=== PATIENT | female | born 1945 | race Caucasian/White ===

== ENCOUNTER 2016-08-27 09:23 | Emergency (ER) | payer OTHER ==
[~2016-08-27] VITALS: Ht 154.9 cm; Wt 64.0 kg
[~2016-08-27 09:23] MED LIST: ALPR-138 PO; CARV3.125 PO; FLON0.053; FLUOCINOLONE RIGHT EAR; PRAV40TA PO; RANI150T PO
[2016-08-27 09:26] VITALS: BP 155/92; PULSE 100; RESP 16; TEMP 98.7; O2SAT 97
--- NOTE | 2016-08-27 09:43 | PD ---
HPI . Urinary symptoms Chief Complaint: Complaint Time Seen by Provider: 09:39 Travel History International Travel<30 days: No Contact w/Intl Traveler<30days: No Traveled to known affect area: No History of Present Illness HPI The patient presents for the evaluation of acute urinary symptoms. Onset was last night. She reports was given urination, dysuria and hematuria. She states that she has had a lot of water to drink and that that seems to have helped her symptoms. She is unaware of any exacerbating factor. Pain is rated 4/10. Her discomfort is described as suprapubic pressure. She denies associated fever, vomiting or flank pain. PFSH Past Medical History Hx Anticoagulant Therapy: No Anxiety: Yes High Cholesterol: Yes Diabetes: No Diminished Hearing: No Glaucoma: No Hepatitis: No Hiatal Hernia: No Hypertension: No (ELEVATED HEART RATE) Integumentary: Yes ("panic attacks") Thyroid Disease: No ?: Not Menopausal: Yes Tubal Ligation: Yes Past Surgical History Abdominal Surgery: Yes (APPENDECTOMY/RUPTURED APPENDIX WHEN 4 YO) Appendectomy: Yes Ear Surgery: Yes (TYMPANOPLASTY 2002) Gynecologic Surgery: Yes (TUBAL LIGATION 1982, HYSTERECTOMY 1998) Hysterectomy: Yes (HTN) Pacemaker: No Social History Alcohol Use: No Tobacco Use: No Substance Use: No Allergies-Medications (Allergen,Severity, Reaction): Coded Allergies: Augmentin (Verified Adverse Reaction, Severe, SEVERE DIARRHEA, 08/27/16) Codeine (Verified Adverse Reaction, Severe, SEVERE VOMITING, 08/27/16) Reported Meds & Prescriptions Reported Meds & Active Scripts Active Reported Hydrochlorothiazide 12.5 Mg Tab 12.5 Mg PO DAILY Ranitidine (Ranitidine HCl) 150 Mg Cap 150 Mg PO BID Xanax (Alprazolam) 0.5 Mg Tab 0.5 Mg PO Q4H PRN Pravastatin 40 Mg Tab 40 Mg PO DAILY Wellbutrin SR 12 HR (Bupropion HCl) 100 Mg Tab 100 Mg PO Q12HR Coreg (Carvedilol) 6.25 Mg Tab 6.25 Mg PO BID Review of Systems Except as stated in HPI: all other systems reviewed are Neg General / Constitutional: No: Fever, Chills Gastrointestinal: No: Nausea, Vomiting, Abdominal Pain Genitourinary: Positive: Urgency, Frequency, Dysuria, Hematuria, Pelvic Pain, No: Flank Pain Physical Exam Narrative GENERAL: Awake and alert in no acute distress. SKIN: Warm and dry. HEAD: Atraumatic. Normocephalic. EYES: Pupils equal and round. Extraocular movements are intact. ENT: No nasal bleeding or discharge. Mucous membranes pink and moist. NECK: Trachea midline. Neck is supple. CARDIOVASCULAR: Regular rate and rhythm. RESPIRATORY: No accessory muscle use. GI/: No suprapubic or CVA tenderness. MUSCULOSKELETAL: No obvious deformities. No edema. NEUROLOGICAL: Awake and alert. No obvious cranial nerve deficits. Motor grossly within normal limits. Normal speech. PSYCHIATRIC: Appropriate mood and affect; insight and judgment normal. Data Data Last Documented VS Vital Signs Date Time Temp Pulse Resp B/P Pulse Ox O2 Delivery O2 Flow Rate FiO2 08/27/16 09:26 98.7 100 16 155/92 97 Orders Urinalysis - C+S If Indicated (08/27/16 09:25) Urine Culture (08/27/16 09:50) Labs Laboratory Tests Test 08/27/16 09:50 Urine Collection Type CLEAN CATCH Urine Color STRAW Urine Turbidity CLEAR Urine pH 5.5 Urine Specific [place] 1.005 Urine Protein NEG mg/dL Urine Glucose (UA) NEG mg/dL Urine Ketones NEG mg/dL Urine Occult Blood MOD Urine Nitrite NEG Urine Bilirubin NEG Urine Leukocyte Esterase LARGE Urine RBC 0-3 /hpf Urine WBC 15-19 /hpf Microscopic Urinalysis Comment CULTURE INDICATED MDM Medical Decision Making Medical Screen Exam Complete: Yes Emergency Medical Condition: Yes Differential Diagnosis Final differential diagnosis of urinary symptoms includes but is not limited to UTI, kidney stone, pyelonephritis, bacterial vaginosis, yeast infection, urinary retention Narrative Course Patient presents for the evaluation of acute urinary symptoms. She is describing suprapubic pressure, hematuria or frequency and urgency. She also has dysuria. UA>>mod blood, large LE, 15-19 WBCs She will be treated for UTI with Macrobid and Pyridium. She is instructed to continue to drink lots of fluids. Diagnosis Primary Impression: Urinary tract infection Qualified Code: N30.01 - Acute cystitis with hematuria Patient Instructions: General Instructions, Urinary Tract Infection in Women ( [place]) Med/Other Pt SpecificInfo: Prescription(s) given Scripts Phenazopyridine (Pyridium)100 Mg [id number] Mg PO Q8H PRN (DYSURIA) #10 TAB Ref 0 Prov:Temitope Aguila MD 08/27/16 Nitrofurantoin Monohydrate Macrocrystals (Macrobid)100 Mg [id number] Mg PO BID 7 Days Ref 0 Prov:Temitope Aguila MD 08/27/16 Disposition: 01 DISCHARGE HOME Condition: Stable Temitope Aguila MD Aug 27, 2016 09:42
[2016-08-27] MEDS ORDERED: ALPR.5 PO (09:48)
[2016-08-27] MEDS ORDERED: BUPR100CR PO (09:48)
[2016-08-27] MEDS ORDERED: CARV6.25 PO (09:48)
[2016-08-27] MEDS ORDERED: HYDR12.56 PO (09:48)
[2016-08-27] MEDS ORDERED: PRAV40TA2 PO (09:48)
[2016-08-27] MEDS ORDERED: RANI150C PO (09:48)
[2016-08-27 09:56] LABS: GLUCOSE,URINE NEG (NEG); KETONE, URINE NEG (NEG); NITRITE,URINE NEG (NEG); PH, URINE 5.5 (5.0-8.5)
[2016-08-27 09:57] LABS: BLOOD, URINE MOD (NEG)
[2016-08-27 09:58] LABS: METHOD OF COLLECTION CLEAN CATCH; URINE COLOR STRAW (YELLW/STRAW)
[2016-08-27 10:00] LABS: COMMENT (UR) CULTURE INDICATED; CULTURE IF INDICATED CULTURE INDICATED; RBC, URINE 0-3 /hpf (0-3); WBC, URINE 15-19 /hpf (0-5)
[2016-08-27] MEDS ORDERED: MACR100C2 PO (10:07)
[2016-08-27] MEDS ORDERED: PHEN0.4T PO (10:07)
== END 2016-08-27 10:25 | disposition home or self-care (01) ==
LOC: PHED 09:23
DX: N30.01 Acute cystitis with hematuria (principal); B96.20 Unspecified Escherichia coli [E. coli] as the cause of diseases classified elsewhere
CPT/HCPCS: 81001; 87077; 87086; 87186; 99283

== ENCOUNTER 2016-09-13 20:04 | Observation (INO) | payer OTHER ==
[2016-09-13] VITALS (9 sets, daily range): BP systolic 100–175; BP diastolic 53–92; PULSE 98–116; RESP 16–18; TEMP 99.5–99.9; O2SAT 91–97
[~2016-09-13] VITALS: Ht 154.9 cm; Wt 63.9 kg
[~2016-09-13 20:04] MED LIST changes: -ALPR-138 PO; +ALPR.5 PO; +BUPR100CR PO; -CARV3.125 PO; +CARV6.25 PO; -FLON0.053; -FLUOCINOLONE RIGHT EAR; +HYDR12.56 PO; +MACR100C2 PO; +PHEN0.4T PO; -PRAV40TA PO; +PRAV40TA2 PO; +RANI150C PO; -RANI150T PO
[2016-09-13] MEDS ORDERED: ASPIRIN 81 MG CHEW TAB PO ONE (20:45)
[2016-09-13] MEDS ORDERED: SODIUM CHLORIDE 0.9% FLUSH 10 ML FLUSH IVF PRN ×2 (20:45→23:45)
[2016-09-13] MEDS ORDERED: ALPR0.25 PO (20:52)
[2016-09-13] MEDS ORDERED: CARV3.12 PO (20:52)
[2016-09-13] MEDS ORDERED: FLUT50SP EACH NARE (20:52)
[2016-09-13] MEDS ORDERED: PRAV40TA2 PO (20:52)
[2016-09-13] MEDS ORDERED: FLUO0.0124 (20:52)
[2016-09-13] MEDS ORDERED: BUPR150XL PO (20:52)
[2016-09-13] MEDS: NITROGLYCERIN 0.4 MG SL 25 TABS/BTL SL SCH ×3 (20:55→21:45)
--- NOTE | 2016-09-13 21:14 | RADRPT ---
EXAM DATE/TIME: 09/13/2016 21:02 [place] COMPARISON: No previous studies available for comparison. INDICATIONS : Chest pain today. MEDICAL HISTORY : Hypertension. SURGICAL HISTORY : None. ENCOUNTER: Initial ACUITY: 1 day PAIN SCORE: 4/10 LOCATION: Bilateral chest FINDINGS: A single view of the chest demonstrates the lungs to be symmetrically aerated without evidence of mas s, infiltrate or effusion. The cardiomediastinal contours are unremarkable. Osseous structures are intact. CONCLUSION: Negative for acute process. Jerome Maguire MD FACR on September 13, 2016 at 21:12 Board Certified Radiologist. This report was verified electronically.
[2016-09-13] MEDS: SODIUM CHLOR 0.9% 1000 ML INJ 1,000 ML IV SCH (21:32)
[2016-09-13 21:38] LABS: CHLORIDE 104 MEQ/L (98-107); SODIUM (NA) 138 MEQ/L (136-145)
[2016-09-13 21:42] LABS: ANION GAP 9 MEQ/L (5-15); BICARBONATE 25.5 MEQ/L (21.0-32.0); BLOOD UREA NITROGEN 15 MG/DL (7-18); MAGNESIUM 1.7 MG/DL (1.5-2.5)
[2016-09-13 21:45] LABS: APTT (PATIENT) 25.9 SEC (24.3-30.1); GLOMERULAR FILTRATION RATE 79 ML/MIN (>89); POTASSIUM 3.9 MEQ/L (3.5-5.1); PROTHROMBIN TIME - PATIENT 10.8 SEC (9.8-11.6)
[2016-09-13 21:50] LABS: AUTOMATED NEUTROPHIL # 9.8 TH/MM3 (1.8-7.7); BASOPHIL % 0.3 % (0.0-2.0); EOSINOPHIL # 0.1 TH/MM3 (0-0.4); EOSINOPHIL % 0.5 % (0.0-4.0); LYMPH % 9.7 % (9.0-44.0); LYMPHOCYTE # 1.2 TH/MM3 (1.0-4.8); MEAN CORPUSCULAR HEMOGLOBIN 29.8 PG (27.0-34.0); MEAN CORPUSCULAR HGB CONC 32.8 % (32.0-36.0); MONO % 7.9 % (0.0-8.0); NEUT % 81.6 % (16.0-70.0); PLATELET COUNT 270 TH/MM3 (150-450); RED BLOOD COUNT 4.62 MIL/MM3 (4.00-5.30); RED CELL DISTRIBUTION WIDTH 12.4 % (11.6-17.2)
[2016-09-13 21:51] LABS: HEMO FLAGS AUTO DIFF
[2016-09-13 21:58] LABS: CREATINE KINASE 65 U/L (26-192)
[2016-09-13] MEDS ORDERED: SODIUM CHLORID 0.9% 500 ML INJ 500 ML IV ONE (22:00)
[2016-09-13] MEDS ORDERED: SODIUM CHLOR 0.9% 1000 ML INJ 1,000 ML IV ONE (22:15)
[2016-09-13] MEDS ORDERED: ALPRAZolam 0.5 MG TAB PO ONE (22:15)
--- NOTE | 2016-09-13 22:18 | EKG ---
Date Performed: 09/13/2016 Time Performed: 20:15:23 PTAGE: 71 years EKG: SINUS TACHYCARDIA LOW QRS VOLTAGE IN PRECORDIAL LEADS INFERIOR MYOCARDIAL INFARCTION ABNORM AL ECG NO PREVIOUS TRACING DOCTOR: Roscoe Toro Interpretating Date/Time 09/13/2016 22:16:31
[2016-09-13 22:47] LABS: SCAN/DIFF AUTO DIFF CONFIRMED
--- NOTE | 2016-09-13 22:59 | PD ---
HPI Chief Complaint: Chest Pain Time Seen by Provider: 20:39 Travel History International Travel<30 days: No Contact w/Intl Traveler<30days: No Traveled to known affect area: No History of Present Illness HPI 71-year-old female presents to the emergency department by private transportation for complaint of chest pressure 5/10 in intensity since early afternoon. Patient states she was evaluated 6 years ago for similar type presentation with negative evaluation by an emergency department out of state and then once returning home by negative workup reportedly by her social research assistant Dr. Terrazas. Patient did not have social research assistant prior to this event was referred by her primary care physician. Patient is treated for hypertension and dyslipidemia. Patient does not smoke cigarettes and does not have diabetes. No family history reported of cardiac disease. Patient did not take any medications for her discomfort. Patient states that she is followed by Dr. vilchis and had who in the past 6 months has been on Wellbutrin and patient states that she typically does better on medication for anxiety such as Xanax or clonazepam. Patient also had recently a past 2 weeks her Coreg dose elevated. Patient is placed on Coreg by social research assistant Dr. Terrazas. Patient also notes that she had associated brief nausea with the episode of chest discomfort. Patient states she had no shortness of breath pleuritic pain sweats or referred neck jaw back shoulder arm or abdominal pain. Patient denies other concerns or complaints. Patient is unable to identify exacerbating or alleviating factors. Patient denies any recent febrile illness. Patient was treated recently for urinary tract infection and completed the course of antibiotic. Patient's had no headache no sinus pressure drainage no sore throat no earache no neck pain no cough no congestion no productive cough no abdominal pain no diarrheal illness no dysuria no joint pain swelling or skin rash. PFSH Past Medical History Narrative Medical Anxiety chest pain hypertension dyslipidemia arthritis; appendectomy hysterectomy tympanoplasty; no tobacco use no alcohol use; nursing notes reviewed Hx Anticoagulant Therapy: No Anxiety: Yes Cardiovascular Problems: No High Cholesterol: Yes Diabetes: No Diminished Hearing: No Glaucoma: No Hepatitis: No Hiatal Hernia: No Hypertension: No (ELEVATED HEART RATE) Medical other: Yes (ARTHRITIS) Respiratory: No Integumentary: Yes ("panic attacks") Thyroid Disease: No Tetanus Vaccination: < 5 Years Influenza Vaccination: Yes ?: Unknown Menopausal: Yes Tubal Ligation: Yes Past Surgical History Abdominal Surgery: Yes (APPENDECTOMY/RUPTURED APPENDIX WHEN 4 YO) Appendectomy: Yes Ear Surgery: Yes (TYMPANOPLASTY 2002) Gynecologic Surgery: Yes (TUBAL LIGATION 1982, HYSTERECTOMY 1998) Hysterectomy: Yes (HTN) Pacemaker: No Other Surgery: Yes Social History Alcohol Use: No Tobacco Use: No Substance Use: No Allergies-Medications (Allergen,Severity, Reaction): Coded Allergies: Augmentin (Verified Adverse Reaction, Severe, SEVERE DIARRHEA, 09/13/16) Codeine (Verified Adverse Reaction, Severe, SEVERE VOMITING, 09/13/16) Reported Meds & Prescriptions Reported Meds & Active Scripts Active Reported Dermotic Otic Drops (Fluocinolone Otic Drops) 0.01% Drops Fluticasone Nasal [place] 50 Mcg/Act Naspr 50 Mcg EACH NARE BID 50 mcg/spray Pravastatin 40 Mg Tab 40 Mg PO DAILY Carvedilol 3.125 Mg Tab 3.125 Mg PO BID Wellbutrin Xl 24 HR (Bupropion HCl) 150 Mg Tab 150 Mg PO DAILY Alprazolam 0.25 Mg Tab 0.25 Mg PO Q6H PRN Hydrochlorothiazide 12.5 Mg Tab 12.5 Mg PO DAILY Ranitidine (Ranitidine HCl) 150 Mg Cap 150 Mg PO BID Pravastatin 40 Mg Tab 40 Mg PO DAILY Review of Systems Except as stated in HPI: all other systems reviewed are Neg General / Constitutional: No: Fever, Chills HENT: No: Headaches, Sore Throat, Congestion, Neck Pain Cardiovascular: Positive: Chest Pain or Discomfort, No: Palpitations, Diaphoresis Respiratory: No: Cough, Shortness of Breath, Wheezing Gastrointestinal: Positive: Nausea, No: Vomiting, Diarrhea, Abdominal Pain Genitourinary: No: Urgency, Frequency, Dysuria, Flank Pain Musculoskeletal: No: Myalgias, Arthralgias, Edema, Pain Neurologic: No: Weakness Psychiatric: Positive: Anxiety Hematologic/Lymphatic: No: Lymph Node Enlargement Physical Exam Narrative GENERAL: Well-developed well-nourished female in no acute distress no respiratory distress SKIN: Warm and dry. HEAD: Normocephalic. EYES: No scleral icterus. No injection or drainage. NECK: Supple, trachea midline. No JVD or lymphadenopathy. CARDIOVASCULAR: Mild increased rate and regular rhythm without murmurs, gallops , or rubs. RESPIRATORY: Breath sounds equal bilaterally. No accessory muscle use. GASTROINTESTINAL: Abdomen soft, non-tender, nondistended. MUSCULOSKELETAL: No cyanosis, or edema. Bilateral radial and dorsalis pedis pulses 2+ to palpation. BACK: Nontender without obvious deformity. No CVA tenderness. Data Data Last Documented VS Vital Signs Date Time Temp Pulse Resp B/P Pulse Ox O2 Delivery O2 Flow Rate FiO2 09/13/16 23:34 18 94 Room Air 09/13/16 23:30 98 134/68 09/13/16 22:22 99.5 Orders Electrocardiogram (09/13/16 20:39) Basic Metabolic Panel (Bmp) (09/13/16 20:39) Ckmb (Isoenzyme) Profile (09/13/16 20:39) Complete Blood Count With Diff (09/13/16 20:39) Magnesium (Mg) (09/13/16 20:39) Prothrombin Time / Inr (Pt) (09/13/16 20:39) Act Partial Throm Time (Ptt) (09/13/16 20:39) Troponin I (09/13/16 20:39) Chest, Single Ap (09/13/16 20:39) Ecg Monitoring (09/13/16 20:39) Bilateral Bp Monitoring (09/13/16 20:39) Iv Access Insert/Monitor (09/13/16 20:39) Oximetry (09/13/16 20:39) Oxygen Administration (09/13/16 20:39) Aspirin Chew (Aspirin Chew) (09/13/16 20:45) Nitroglycerin Sl (Nitrostat Sl) (09/13/16 20:45) Sodium Chlor 0.9% 1000 Ml Inj (Ns 1000 M (09/13/16 20:45) Sodium Chlorid 0.9% 500 Ml Inj (Ns 500 M (09/13/16 22:00) Lactic Acid (09/13/16 22:15) Blood Culture (09/13/16 22:15) Sodium Chlor 0.9% 1000 Ml Inj (Ns 1000 M (09/13/16 22:15) Urinalysis - C+S If Indicated (09/13/16 22:15) Alprazolam (Xanax) (09/13/16 22:15) Admit Order (Ed Use Only) (09/13/16 ) ^ Saline Lock (09/13/16 23:36) Resp Oxygen Jesus C Titrat 1-4 L (09/13/16 ) Notify Dr: Other (09/13/16 23:36) Sodium Chloride 0.9% Flush (Ns Flush) (09/14/16 09:00) Sodium Chloride 0.9% Flush (Ns Flush) (09/13/16 23:45) Place In Observation (09/13/16 23:35) Activity Bed Rest With Brp (09/13/16 23:35) Vital Signs (Adult) Q4H (09/13/16 23:35) Cardiac Rhythm .As Directed (09/13/16 23:35) Notify Dr: Other .PRN (09/13/16 23:35) Notify Dr. Parameters (09/13/16 23:35) Resp Oxygen Nasal Cannula (09/13/16 ) Diet Npo (09/14/16 Breakfast) Ckmb (Isoenzyme) Profile (09/13/16 23:55) Ckmb (Isoenzyme) Profile (09/14/16 02:55) Troponin I (09/13/16 23:55) Troponin I (09/14/16 02:55) Electrocardiogram (09/13/16 23:55) Electrocardiogram (09/14/16 02:55) ^ Obtain (09/13/16 23:35) Breaker Hand / Telemetry MATILDA.Q8H (09/13/16 23:35) Labs Laboratory Tests Test 09/13/16 09/13/16 09/13/16 21:15 22:44 23:22 White Blood Count 12.0 TH/MM3 Red Blood Count 4.62 MIL/MM3 Hemoglobin 13.8 GM/DL Hematocrit 42.0 % Mean Corpuscular Volume 91.0 FL Mean Corpuscular Hemoglobin 29.8 PG Mean Corpuscular Hemoglobin 32.8 % Concent Red Cell Distribution Width 12.4 % Platelet Count 270 TH/MM3 Mean Platelet Volume 8.8 FL Neutrophils (%) (Auto) 81.6 % Lymphocytes (%) (Auto) 9.7 % Monocytes (%) (Auto) 7.9 % Eosinophils (%) (Auto) 0.5 % Basophils (%) (Auto) 0.3 % Neutrophils # (Auto) 9.8 TH/MM3 Lymphocytes # (Auto) 1.2 TH/MM3 Monocytes # (Auto) 0.9 TH/MM3 Eosinophils # (Auto) 0.1 TH/MM3 Basophils # (Auto) 0.0 TH/MM3 CBC Comment AUTO DIFF Differential Comment AUTO DIFF CONFIRMED Prothrombin Time 10.8 SEC Prothromb Time International 1.0 RATIO Ratio Activated Partial 25.9 SEC Thromboplast Time Sodium Level 138 MEQ/L Potassium Level 3.9 MEQ/L Chloride Level 104 MEQ/L Carbon Dioxide Level 25.5 MEQ/L Anion Gap 9 MEQ/L Blood Urea Nitrogen 15 MG/DL Creatinine 0.73 MG/DL Estimat Glomerular Filtration 79 ML/MIN Rate Random Glucose 118 MG/DL Calcium Level 9.4 MG/DL Magnesium Level 1.7 MG/DL Total Creatine Kinase 65 U/L Troponin I LESS THAN 0.02 NG/ML Lactic Acid Level 0.9 mmol/L Urine Color STRAW Urine Turbidity CLEAR Urine pH 6.0 Urine Specific [place] 1.010 Urine Protein NEG mg/dL Urine Glucose (UA) NEG mg/dL Urine Ketones 15 mg/dL Urine Occult Blood TRACE Urine Nitrite NEG Urine Bilirubin NEG Urine Leukocyte Esterase SMALL Urine RBC 0-3 /hpf Urine WBC 6-8 /hpf Urine Squamous Epithelial 0-5 /hpf Cells Urine Bacteria RARE /hpf Microscopic Urinalysis Comment CULT NOT INDICATED MDM Medical Decision Making Medical Screen Exam Complete: Yes Emergency Medical Condition: Yes Medical Record Reviewed: Yes Interpretation(s) EKG: Sinus tachycardia rate [address] elevation or injury pattern change age-indeterminate QS inferiorly in lead 3 and aVF Last Impressions Chest X-Ray 09/13/162038 Signed Impressions: Service Date/Time: Tuesday, September 13, 2016 21:02 - CONCLUSION: Negative for acute process. Jerome Maguire MD FACR CBC & BMP Diagram 09/13/16 21:15 Vital Signs Date Time Temp Pulse Resp B/P Pulse Ox O2 Delivery O2 Flow Rate FiO2 09/13/16 22:22 99.5 09/13/16 21:58 18 09/13/16 21:52 112 18 106/65 91 Room Air 09/13/16 21:42 116 18 100/53 97 Room Air 09/13/16 21:30 106 18 165/79 93 Room Air 09/13/16 20:54 18 96 Room Air 09/13/16 20:54 99.9 110 18 175/92 96 Room Air 09/13/16 20:54 110 18 96 Room Air 09/13/16 20:54 99.9 110 18 175/92 96 Room Air 09/13/16 20:54 96 Room Air 09/13/16 20:50 99.9 109 18 161/88 96 09/13/16 20:25 109 16 161/88 96 CK: 65, not elevated; troponin I less than 0.02, not elevated Differential Diagnosis Chest pain, atypical chest pain, ACS, myocardial infarction, pneumonia, PE, aortic dissection, aneurysm, musculoskeletal pain, pericarditis, pleurisy, myocarditis, esophagitis, gastritis, pancreatitis, biliary colic Narrative Course Well-developed well-nourished female in no acute distress no respiratory distress with mild tachycardia with without reproducible chest wall tenderness or abdominal tenderness to direct palpation and without guarding or rebound no palpable pulsatile mass; bilateral radial and dorsalis pedis pulses 2+ to palpation; EKG shows sinus tachycardia without acute ST elevation or injury pattern. Patient does identify a QS inferiorly in 3 and aVF age-indeterminate. Specimens collected and sent for resulting patient administered aspirin 162 mg and sublingual nitroglycerin After 2 sublingual nitroglycerin pain has gone from 5/10 intensity to 0/10 in intensity and patient's blood pressure has decreased to 106/65; patient subsequently complains of tightness now that her pressure is 0/10 intensity that she states is consistent with her anxiety and requests Xanax. Based on patient's history of anxiety 0.5 mg of Xanax administered by mouth along with identified to have ongoing tachycardia and a white count total of 12,000 lactic acid blood cultures obtained patient given additional bolus of normal saline and urine specimen ordered. At this point time due to temperature of 99.9 upon arrival and 99.5 on subsequent temperature check with ongoing tachycardia and total white cell count of 12,000 she is borderline for service criteria but no obvious source of infection lactic acid and blood cultures obtained. Patient this time will be to admit patient to chest pain center per chest pain center protocol as percent cardiac enzymes fall into normal range. 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 Sepsis Criteria SIRS Criteria (2 or more): Heart rate over 90 Physician Communication Physician Communication discussed with [facility] MD --[facility] Diagnosis Primary Impression: Chest pain Qualified Code: R07.2 - Precordial pain Admitting Information Admitting Physician Requests: Observation Meena Pina MD Sep 13, 2016 22:59
[2016-09-13 23:35] LABS: BLOOD, URINE TRACE (NEG); GLUCOSE,URINE NEG (NEG); KETONE, URINE 15 mg/dL (NEG); NITRITE,URINE NEG (NEG)
[2016-09-13 23:41] LABS: BACTERIA, URINE RARE /hpf; COMMENT (UR) CULT NOT INDICATED; CULTURE IF INDICATED CULT NOT INDICATED; RBC, URINE 0-3 /hpf (0-3); SQUAMOUS EPITHELIAL CELL URINE 0-5 /hpf (0-5); URINE COLOR STRAW (YELLW/STRAW)
[2016-09-13] MEDS ORDERED: SODIUM CHLORIDE 0.9% FLUSH 10 ML FLUSH IV FLUSH PRN (23:45)
[2016-09-14] VITALS (10 sets, daily range): BP systolic 105–155; BP diastolic 60–77; PULSE 77–105; RESP 17–20; TEMP 97.9–98.8; O2SAT 92–97
[2016-09-14 00:41] LABS: CREATINE KINASE 31 U/L (26-192)
[2016-09-14 04:55] LABS: CREATINE KINASE 27 U/L (26-192)
[2016-09-14] MEDS: SODIUM CHLOR 0.9% 1000 ML INJ 1,000 ML IV SCH (06:17)
--- NOTE | 2016-09-14 08:30 | EKG ---
Date Performed: 09/14/2016 Time Performed: 03:16:57 PTAGE: 71 years EKG: SINUS TACHYCARDIA ABNORMAL RHYTHM ECG NO PREVIOUS TRACING DOCTOR: Roscoe Toro Interpretating Date/Time 09/14/2016 08:29:15
--- NOTE | 2016-09-14 08:34 | EKG ---
Date Performed: 09/13/2016 Time Performed: 23:51:50 PTAGE: 71 years EKG: SINUS TACHYCARDIA LOW QRS VOLTAGE IN PRECORDIAL LEADS INFERIOR MYOCARDIAL INFARCTION ABNORM AL ECG PREVIOUS TRACING : 09/13/2016 20.15 No significant change from previous tracing noted. DOCTOR: Roscoe Toro Interpretating Date/Time 09/14/2016 08:33:16
[2016-09-14] MEDS ORDERED: SODIUM CHLORIDE 0.9% FLUSH 10 ML FLUSH IV FLUSH SCH ×2 (09:00)
[2016-09-14] MEDS ORDERED: ALPRAZolam 0.25 MG TAB PO PRN (09:30)
--- NOTE | 2016-09-14 11:42 | HHI.HP ---
[facility] Service [facility] Primary Care Physician Fahad Ta M.D. Admission Diagnosis Chest pain Diagnoses: Chief Complaint: Chest pain Travel History International Travel<30 Days: No Contact w/Intl Traveler <30 Da: No Traveled to Known Affected Are: No History of Present Illness 71-year-old female with a medical history significant for hypertension, anxiety , hyperlipidemia presented to the emergency room with complaint of chest discomfort. Patient reported chest tightness that was about 5 out of 10 which started yesterday. She reports she had a similar episode about 6 years ago which was due to anxiety. At the time she had a negative stress test. By the time of my evaluation, patient reports currently feeling anxious. Chest tightness mostly resolves, no associated shortness of breath or diaphoresis. Review of Systems Constitutional: DENIES: Fever, Chills Cardiovascular: COMPLAINS OF: Chest pain, DENIES: Palpitations, Syncope, Dyspnea on Exertion Except as stated in HPI: all other systems reviewed are Neg Past Family Social History Past Medical History Hypertension Anxiety Hyperlipidemia Past Surgical History Appendectomy Hysterectomy Reported Medications Reported Meds & Active Scripts Active Alprazolam 0.25 Mg Tab 0.25 Mg PO Q6H PRN Reported Dermotic Otic Drops (Fluocinolone Otic Drops) 0.01% Drops Fluticasone Nasal Cassandra 50 Mcg/Act Naspr 50 Mcg EACH NARE BID 50 mcg/spray Pravastatin 40 Mg Tab 40 Mg PO DAILY Carvedilol 3.125 Mg Tab 3.125 Mg PO BID Wellbutrin Xl 24 HR (Bupropion HCl) 150 Mg Tab 150 Mg PO DAILY Hydrochlorothiazide 12.5 Mg Tab 12.5 Mg PO DAILY Ranitidine (Ranitidine HCl) 150 Mg Cap 150 Mg PO BID Pravastatin 40 Mg Tab 40 Mg PO DAILY Allergies: Coded Allergies: Augmentin (Verified Adverse Reaction, Severe, SEVERE DIARRHEA, 09/13/16) Codeine (Verified Adverse Reaction, Severe, SEVERE VOMITING, 09/13/16) Family History Reviewed and noncontributory. Social History Denies alcohol, tobacco, or illicit drug use. Physical Exam Vital Signs Vital Signs Date Time Temp Pulse Resp B/P Pulse Ox O2 Delivery O2 Flow Rate FiO2 09/14/16 08:36 95 21 09/14/16 08:00 98.5 105 17 155/75 97 09/14/16 04:00 98.8 102 20 134/77 92 09/14/16 01:44 95 21 09/14/16 01:30 98 09/14/16 01:00 97.9 98 20 105/70 92 09/14/16 00:48 98 18 128/60 95 09/14/16 00:00 98 18 128/60 95 Room Air 09/13/16 23:34 18 94 Room Air 09/13/16 23:30 98 18 134/68 93 Room Air 09/13/16 22:52 102 18 122/63 95 Room Air 09/13/16 22:22 99.5 09/13/16 21:58 18 09/13/16 21:52 112 18 106/65 91 Room Air 09/13/16 21:42 116 18 100/53 97 Room Air 09/13/16 21:30 106 18 165/79 93 Room Air 09/13/16 20:54 18 96 Room Air 09/13/16 20:54 99.9 110 18 175/92 96 Room Air 09/13/16 20:54 110 18 96 Room Air 09/13/16 20:54 99.9 110 18 175/92 96 Room Air 09/13/16 20:54 96 Room Air 09/13/16 20:50 99.9 109 18 161/88 96 09/13/16 20:25 109 16 161/88 96 Physical Exam GENERAL: This is a well-nourished, well-developed patient, in no apparent distress. SKIN: No rashes, ecchymoses or lesions. Cool and dry. HEAD: Atraumatic. Normocephalic. No temporal or scalp tenderness. EYES: Pupils equal round and reactive. Extraocular motions intact. No scleral icterus. No injection or drainage. ENT: Nose without bleeding, purulent drainage or septal hematoma. Throat without erythema, tonsillar hypertrophy or exudate. Uvula midline. Airway patent. NECK: Trachea midline. No JVD or lymphadenopathy. Supple, nontender, no meningeal signs. CARDIOVASCULAR: Regular rate and rhythm without murmurs, gallops, or rubs. RESPIRATORY: Clear to auscultation. Breath sounds equal bilaterally. No wheezes , rales, or rhonchi. GASTROINTESTINAL: Abdomen soft, non-tender, nondistended. No hepato-splenomegaly , or palpable masses. No guarding. MUSCULOSKELETAL: Extremities without clubbing, cyanosis, or edema. No joint tenderness, effusion, or edema noted. No calf tenderness. Negative Homans sign bilaterally. NEUROLOGICAL: Awake and alert. Cranial nerves II through XII intact. Motor and sensory grossly within normal limits. Five out of 5 muscle strength in all muscle groups. Normal speech. PSYCH: Anxious Laboratory Laboratory Tests Test 09/13/16 09/13/16 09/13/16 09/14/16 21:15 22:44 23:22 00:07 White Blood Count 12.0 Red Blood Count 4.62 Hemoglobin 13.8 Hematocrit 42.0 Mean Corpuscular Volume 91.0 Mean Corpuscular Hemoglobin 29.8 Mean Corpuscular Hemoglobin 32.8 Concent Red Cell Distribution Width 12.4 Platelet Count 270 Mean Platelet Volume 8.8 Neutrophils (%) (Auto) 81.6 Lymphocytes (%) (Auto) 9.7 Monocytes (%) (Auto) 7.9 Eosinophils (%) (Auto) 0.5 Basophils (%) (Auto) 0.3 Neutrophils # (Auto) 9.8 Lymphocytes # (Auto) 1.2 Monocytes # (Auto) 0.9 Eosinophils # (Auto) 0.1 Basophils # (Auto) 0.0 CBC Comment AUTO DIFF Differential Comment AUTO DIFF CONFIRMED Prothrombin Time 10.8 Prothromb Time International 1.0 Ratio Activated Partial 25.9 Thromboplast Time Sodium Level 138 Potassium Level 3.9 Chloride Level 104 Carbon Dioxide Level 25.5 Anion Gap 9 Blood Urea Nitrogen 15 Creatinine 0.73 Estimat Glomerular Filtration 79 Rate Random Glucose 118 Calcium Level 9.4 Magnesium Level 1.7 Total Creatine Kinase 65 31 Troponin I LESS THAN 0.02 LESS THAN 0.02 Lactic Acid Level 0.9 Urine Color STRAW Urine Turbidity CLEAR Urine pH 6.0 Urine Specific Holden 1.010 Urine Protein NEG Urine Glucose (UA) NEG Urine Ketones 15 Urine Occult Blood TRACE Urine Nitrite NEG Urine Bilirubin NEG Urine Leukocyte Esterase SMALL Urine RBC 0-3 Urine WBC 6-8 Urine Squamous Epithelial 0-5 Cells Urine Bacteria RARE Microscopic Urinalysis Comment CULT NOT INDICATED Test 09/14/16 03:40 Total Creatine Kinase 27 Troponin I LESS THAN 0.02 Date/Time Procedure Status Source Growth 09/13/16 22:44 Aerobic Blood Culture - Preliminary Resulted Blood Peripheral NO GROWTH IN 1 DAY 09/13/16 22:44 Anaerobic Blood Culture - Preliminary Resulted Blood Peripheral NO GROWTH IN 1 DAY 09/13/16 00:13 Urine Culture Received Urine Clean Catch Pending Result Diagram: 09/13/16211409/13/162114 Assessment and Plan Problem List: (1) Chest pain ICD Code: R07.9 Status: Acute (2) Hypertension ICD Code: I10 Status: Acute (3) Anxiety ICD Code: F41.9 Status: Acute Assessment and Plan 71-year-old female with: Chest pain: Risk factors include hypertension, age, hyperlipidemia. She does have anxiety which is probably the reason for her discomfort. However need to rule out coronary syndrome. Status post aspirin in the emergency room Serial EKG and cardiac enzymes unremarkable. Obtain nuclear stress test. If negative the patient can be discharged home. Anxiety: Continue Wellbutrin. Patient felt better with Xanax. Advised to continue as needed and follow-up with PCP. Hypertension: Continue Coreg. Follow-up with PCP Patient had a negative stress test. She is cleared to be discharged home in good condition Follow up with PCP Activity: Regular as tolerated Diet: Heart healthy Meds: No new medications. Problem Qualifiers (1) Chest pain: Qualified Code: R07.2 - Precordial pain Carlos Alberto Palmer MD Sep 14, 2016 11:42
[2016-09-14] MEDS ORDERED: REGADENOSON INJ 0.4 MG/5 ML SYR IV ONE (11:46)
[2016-09-14] MEDS ORDERED: ALPR0.25 PO (13:35)
--- NOTE | 2016-09-14 14:19 | RADRPT ---
EXAM DATE/TIME: 09/14/2016 11:47 [facility] COMPARISON: CHEST SINGLE AP, September 13, 2016, 21:02. INDICATIONS : Chest pain with nausea. Angina. DOSE: 26.1 mCi Tc99m Myoview at stress. 8.3 mCi Tc99m Myoview at rest. 0.4 mg Lexiscan STRESS SYMPTOMS: Chest pressure, stomach pressure, lightheadedness and headache. EJECTION FRACTION: > 70% MEDICAL HISTORY : Hypercholesterolemia. Hypertension. SURGICAL HISTORY : Tubal ligation. Appendectomy. Hysterectomy. ENCOUNTER: Initial ACUITY: 1 day PAIN SCALE: 5/10 LOCATION: chest TECHNIQUE: The patient underwent pharmacologic stress with infusion of prescribed dose. Continuous ECG tracing was monitored during stress. Gated SPECT imaging was performed after stress and conventional SPECT i maging was performed at rest. The examination was performed on a SPECT/CT scanner, both attenuation and non-corrected datasets were reviewed. FINDINGS: DISTRIBUTION: The maximum perfused segment at stress is in the posterior basal wall. PERFUSION STUDY: The pattern of perfusion at stress is within normal limits and there is extensive breast attenuation artifact overlapping the anterolateral wall which corrects on the attenuation corrected images. GATED STUDY: There is intact wall motion and thickening without hypokinetic or dyskinetic segments. CONCLUSION: No appreciable ischemia. RISK CATEGORY: Low (<1% Annual Mortality Rate) Anil Herdeia MD on September 14, 2016 at 14:11 Board Certified Radiologist. This report was verified electronically.
--- NOTE | 2016-09-14 14:59 | HHI.DCPOC ---
Discharge Care Plan Diagnosis: (1) Chest pain (2) Anxiety (3) Hypertension Goals to Promote Your Health * To prevent worsening of your condition and complications * To maintain your health at the optimal level Directions to Meet Your Goals Take your medications as prescribed Follow your dietary instruction Follow activity as directed Keep your appointments as scheduled Take your immunizations and boosters as scheduled If your symptoms worsen call your PCP, if no PCP go to Urgent Care Center or Emergency Room Smoking is Dangerous to Your Health. Avoid second hand smoke Call the 24-hour hour crisis hotline for domestic abuse at Carlos Alberto Palmer MD Sep 14, 2016 14:59
[2016-09-14] MEDS ORDERED: CARVEDILOL 3.125 MG TAB PO SCH (21:00)
[2016-09-14] MEDS ORDERED: FAMOTIDINE 20 MG TAB PO SCH (21:00)
[2016-09-15] MEDS ORDERED: PRAVASTATIN SOD 40 MG TAB PO SCH (09:00)
[2016-09-15] MEDS ORDERED: buPROPion HCL 150 MG SUSTAINED RELEASE TAB PO SCH (09:00)
== END 2016-09-14 17:29 | disposition home or self-care (01) ==
LOC: PHED 20:04 → PHEDA 23:37 → PH3B 09-14 00:41
PROVIDERS: ADMIT Family Medicine; ATTEND Family Medicine
DX: R07.9 Chest pain, unspecified (principal); I10 Essential (primary) hypertension; E78.5 Hyperlipidemia, unspecified; F41.9 Anxiety disorder, unspecified; Z79.899 Other long term (current) drug therapy; R94.31 Abnormal electrocardiogram [ECG] [EKG]
CPT/HCPCS: 71010; 78452; 80048; 81001; 82550; 83605; 83735; 84484; 85025; 85610; 85730; 87040; 87086; 93005; 93017; 99285; A9502; G0378; J2785; J7030; J7040